=== PATIENT | male | born 1950 | race Caucasian/White ===

== ENCOUNTER 2021-08-06 20:43 | Emergency (ER) | payer MEDICARE, BC ==
[2021-08-06] MEDS ORDERED: Lidocaine 2% with EPINEPHrine 1:100,000 20 ML MDV INJECT ONE (20:55)
== END 2021-08-06 21:35 | disposition home or self-care (01) ==
LOC: LL.ED 20:43
DX: R04.0 Epistaxis (principal); I10 Essential (primary) hypertension; I48.91 Unspecified atrial fibrillation; I25.2 Old myocardial infarction; Z87.891 Personal history of nicotine dependence
CPT/HCPCS: 30901; 99283; 99283-25

== ENCOUNTER 2021-08-07 12:39 | Emergency (ER) | payer MEDICARE, BC ==
[2021-08-07] MEDS ORDERED: Phenylephrine 0.5% Nasal Spray 15 ML Bot NASRT ONE (12:57)
== END 2021-08-07 13:15 | disposition home or self-care (01) ==
LOC: LL.ED 12:39
DX: R04.0 Epistaxis (principal); I25.2 Old myocardial infarction
CPT/HCPCS: 30901; 99283-25; 99284; A9270-GY

== ENCOUNTER 2021-08-14 20:21 | Emergency (ER) | payer MEDICARE, BC ==
[2021-08-14] MEDS: Lidocaine 2% with EPINEPHrine 1:100,000 20 ML MDV INJECT ONE (21:35)
== END 2021-08-14 21:36 | disposition home or self-care (01) ==
LOC: LL.ED 20:21
DX: R04.0 Epistaxis (principal); Z72.0 Tobacco use
CPT/HCPCS: 30901; 99283; 99283-25